=== PATIENT | male | born 1940 | race Caucasian/White ===

== ENCOUNTER 2017-12-16 12:59 | Day surgery (SDC) | payer MEDICARE, OTHER ==
[2017-12-13 12:23] LABS: MICROSCOPIC AUTO
[2017-12-13 12:37] LABS: ALANINE AMINOTRANSFERASE 40 U/L (12-78); ALBUMIN 3.8 g/dL (3.4-5.0); ANION GAP 8 mmol/L (5-15); CALCIUM 8.8 mg/dL (8.5-10.1); CHLORIDE 108 mmol/L (98-107); CREATININE 1.35 mg/dL (0.7-1.3)
[2017-12-13 12:39] LABS: ALKALINE PHOSPHATASE 88 U/L (45-117); BILIRUBIN,TOTAL 0.5 mg/dL (0.2-1.0)
[~2017-12-16] VITALS: Ht 172.7 cm; Wt 86.4 kg
[~2017-12-16 12:59] MED LIST: ASPI-621 PO; CALCIUM, MAG, ZINC PO; CHOL10003 PO; CHONDROITIN PO; CYAN25009 PO; FISH1CAP PO; GLUC15006 PO; GLUC1CAP48 PO; LISI-170 PO; LISINOPRIL; METF10002 PO; METF500T4 PO; MULT-717 PO; SIMV20TA3 PO; SIMVASTATIN; TAMS-11 PO; antibiotic PO
[2017-12-16] MEDS ORDERED: LACTATED RINGERS 1,000 ML IV SCH (13:37)
[2017-12-16 13:40] VITALS: BP 167/91
[2017-12-16] MEDS ORDERED: LIDOCAINE-MPF 2% ,5ML ONE (14:25)
[2017-12-16] MEDS ORDERED: LIDOCAINE GEL 2%, 5ML ONE (14:26)
[2017-12-16] MEDS ORDERED: PROPOFOL 10 MG/ML, 20ML ONE (14:29)
[2017-12-16] MEDS ORDERED: ONDANSETRON 2MG/ML, 2ML ONE (14:39)
[2017-12-16] MEDS ORDERED: DEXAMETHASONE 4 MG/ML, 1ML ONE ×2 (14:39)
[2017-12-16] MEDS ORDERED: GENTAMICIN 80 MG/2 ML ONE (14:44)
[2017-12-16] MEDS ORDERED: FENTANYL PF 100 MCG/2ML ONE (14:46)
[2017-12-16] MEDS ORDERED: hydrALAzine 20 MG/ML, 1ML IV PRN (15:00)
[2017-12-16] MEDS ORDERED: ONDANSETRON 2MG/ML, 2ML IVPush PRN (15:00)
[2017-12-16] MEDS ORDERED: PROMETHAZINE 12.5 MG SUPP PR PRN (15:00)
[2017-12-16] MEDS ORDERED: MEPERIDINE/PF 25MG/0.5ML IVPush PRN (15:00)
[2017-12-16] MEDS ORDERED: HYDROmorphone 1 MG/ML, 1ML IV PRN (15:00)
[2017-12-16] MEDS ORDERED: ACETAMINOPHEN 325 MG TABLET PO PRN (15:00)
[2017-12-16] MEDS ORDERED: LABETALOL 5MG/ML, 20ML IV PRN (15:00)
[2017-12-16] MEDS ORDERED: FENTANYL PF 100 MCG/2ML IV PRN (15:00)
== END 2017-12-16 16:20 | disposition home or self-care (01) ==
LOC: OUT 12:59
PROVIDERS: ATTEND Urology
DX: N30.20 Other chronic cystitis without hematuria (principal); I10 Essential (primary) hypertension; E11.9 Type 2 diabetes mellitus without complications; Z88.5 Allergy status to narcotic agent; Z88.8 Allergy status to other drugs, medicaments and biological substances; Z72.89 Other problems related to lifestyle; Z87.891 Personal history of nicotine dependence
CPT/HCPCS: 36415; 52204; 80053; 81001; 82962; 87086; 88305; 93005; J1100; J1580; J2405; J2704; J3010; J3490; J7120